=== PATIENT | female | born 1970 | race Caucasian/White ===

== ENCOUNTER → 2020-06-08 | Outpatient (CLI) | payer OTHER | LOC: SLEEP-COR 14:56 | DX: G47.33 Obstructive sleep apnea (adult) (pediatric) (principal); G47.00 Insomnia, unspecified | CPT/HCPCS: 95810 ==

== ENCOUNTER → 2021-08-27 | Outpatient (CLI) | payer OTHER | LOC: HEART 5 11:51 | DX: R06.00 Dyspnea, unspecified (principal) | CPT/HCPCS: 71046; 94010; 94729; 95012 ==

== ENCOUNTER → 2022-01-17 | Outpatient (CLI) | payer OTHER | LOC: HEART 5 14:15 | DX: R06.00 Dyspnea, unspecified (principal) | CPT/HCPCS: 94010; 94729; 95012 ==